=== PATIENT | female | born 1960 | race Caucasian/White ===

== ENCOUNTER 2024-11-13 08:00 | Emergency (ER) | payer MEDICARE, BC ==
[~2024-11-13] VITALS: Ht 162.6 cm; Wt 65.8 kg
[2024-11-13] MEDS ORDERED: CYCLOBENZAPRINE 10 MG TABLET ONE (08:19)
[2024-11-13] MEDS ORDERED: LIDOCAINE 5% (PATCH) 1 EA PATCH TP ONE (08:19)
[2024-11-13] MEDS: CYCLOBENZAPRINE 10 MG TABLET PO ONE (08:24)
[2024-11-13] MEDS: LIDOCAINE 5% (PATCH) 1 EA PATCH TP SCH (08:24)
[2024-11-13 08:29] LABS: BASOPHILS # (AUTO) 0.1 K/uL (0.0-0.2); EOSINOPHILS # (AUTO) 0.1 K/uL (0.0-0.7); MEAN CORPUSCULAR VOLUME 91 fL (82-100); MONOCYTES # (AUTO) 0.4 K/uL (0.1-1.30)
[2024-11-13 08:35] LABS: CALCIUM, SERUM 9.4 mg/dL (8.5-10.1); CARBON DIOXIDE 27 mmol/L (21-32); CHLORIDE 100 mmol/L (98-107); CREATININE 0.8 mg/dL (0.6-1.3); GLUCOSE 115 mg/dL (74-106); POTASSIUM 4.2 mmol/L (3.5-5.1); SODIUM SERUM 138 mmol/L (136-145); UREA NITROGEN, BLOOD 17 mg/dL (7-18)
[2024-11-13 09:07] LABS: PLATELET COUNT (AUTO) 324 K/uL (150-450)
[2024-11-13 09:17] LABS: BASOPHILS % (AUTO) 1.4 % (0.0-2.0); EOSINOPHILS % (AUTO) 0.9 % (0.0-6.0); HEMATOCRIT 38 % (33-45); HEMOGLOBIN 12.6 g/dL (11.5-14.8); LYMPHOCYTES # (AUTO) 2.2 K/uL (0.8-4.8); LYMPHOCYTES % (AUTO) 35.8 % (20.0-44.0); MEAN CORPUSCULAR HEMOGLOBIN 30 PG (26.0-33.0); MEAN CORPUSCULAR HGB CONC 33 g/dl (31.0-36.0); MONOCYTES % (AUTO) 6.8 % (2.0-12.0); NEUTROPHILS # (AUTO) 3.4 K/uL (1.8-8.9); NEUTROPHILS % (AUTO) 55.1 % (43.0-81.0); RED BLOOD CELL COUNT(AUTO) 4.17 MIL/uL (4.0-5.2); RED CELL DISTRIBUTION WIDTH 13.5 % (11.5-15.0); WHITE BLOOD COUNT (AUTO) 6.2 K/uL (4.3-11.0)
[2024-11-13] MEDS ORDERED: IBUP-1490 PO (11:24)
[2024-11-13 11:30] VITALS: BP 150/90; TEMP 98.6; O2SAT 100
== END 2024-11-13 11:30 | disposition home or self-care (01) ==
LOC: ER 08:00
DX: M54.9 Dorsalgia, unspecified (principal); M62.838 Other muscle spasm; R07.9 Chest pain, unspecified
CPT/HCPCS: 36415; 71045-TC; 80048-TC; 84484-TC; 85025-TC